=== PATIENT | female | born 1935 | race Caucasian/White ===

== ENCOUNTER 2017-03-05 01:24 | Emergency (ER) | payer OTHER ==
[~2017-03-05] VITALS: Ht 157.5 cm; Wt 79.8 kg
[2017-03-05 01:24] VITALS: BP_SYST 155
--- NOTE | 2017-03-05 01:24 | NUR ---
Placed in room 03 . Placed on personal lines agent, blood pressure machine and pulse oximeter. To gown for exam. Side rails up. Report given to DENNY Parker.
--- NOTE | 2017-03-05 01:26 | NUR ---
Pt AOx4, presents to ER with complaint of abdominal pain after having alcoholic beverage [employer] with coaiden. Pt states usually has "a drink prior to going to bed and this has not happend before". Pt in no acute respiratory distress at this time. Will continue to monitor.
--- NOTE | 2017-03-05 01:30 | NUR ---
ER at bedside examining patient.
[2017-03-05] MEDS ORDERED: NACL 0.9% 1,000 ML IV ONE (01:39)
[2017-03-05] MEDS ORDERED: MAG-AL HYDROX/SIMETH 30 ML UDC PO ONE (01:45)
[2017-03-05] MEDS ORDERED: BELLADONNA ALKALOIDS/PHENOBARB 5 ML UDC PO ONE (01:45)
[2017-03-05] MEDS ORDERED: LIDOCAINE VISCOUS 2%, 15 ML UDC MM ONE (01:45)
[2017-03-05 01:58] LABS: BASOPHILS % (AUTO) 0.3 % (0.0-2.0); EOSINOPHILS # (AUTO) 0.2 K/uL (0.0-0.4); EOSINOPHILS % (AUTO) 1.7 % (0.0-4.0); HEMATOCRIT 35.3 % (36-48); HEMOGLOBIN 11.8 g/dL (12.0-16.0); LYMPHOCYTES # (AUTO) 3.2 K/uL (1.0-5.5); LYMPHOCYTES % (AUTO) 28.5 % (20.5-51.5); MEAN CORPUSCULAR HEMOGLOBIN 29 pg (27-31); MEAN CORPUSCULAR HGB CONC 34 % (32-36); MEAN CORPUSCULAR VOLUME 88 fL (79.0-98.0); MONOCYTES # (AUTO) 0.6 K/uL (0.0-1.0); MONOCYTES % (AUTO) 5.6 % (1.7-9.3); NEUTROPHILS # (AUTO) 7.3 K/uL (1.8-7.7); NEUTROPHILS % (AUTO) 63.9 % (40.0-70.0); PLATELET COUNT (AUTO) 221 K/uL (130-430); RED BLOOD CELL COUNT(AUTO) 4.04 MIL/uL (4.2-6.2); RED CELL DISTRIBUTION WIDTH 13.7 % (9.0-15.0); WHITE BLOOD COUNT (AUTO) 11.3 K/uL (4.8-10.8)
[2017-03-05 02:12] LABS: ANION GAP 9 (5-15); CALCIUM 10.1 mg/dL (8.4-11.0); CHLORIDE 105 mmol/L (98-107); CREATININE 0.79 mg/dL (0.55-1.30); GLUCOSE 96 mg/dL (70-99); POTASSIUM 4.2 mmol/L (3.5-5.1); SODIUM SERUM 141 mmol/L (136-145); UREA NITROGEN, BLOOD 13 mg/dL (8-21)
[2017-03-05 02:17] LABS: INR 0.9 (0.8-1.2); PROTHROMBIN TIME 10.3 SECS (9.5-12.5)
[2017-03-05 02:20] LABS: ALANINE AMINOTRANSFERASE 36 U/L (12-78); ALBUMIN 3.8 g/dL (3.4-4.8); ASPARTATE AMINOTRANSFERASE 49 U/L (10-37); TOTAL BILIRUBIN 0.3 mg/dL (0.0-1.0); TOTAL PROTEIN, SERUM 7.1 g/dL (6.4-8.3)
--- NOTE | 2017-03-05 02:30 | NUR ---
Patient resting quietly. No acute distress noted. Vital signs within normal range.
[2017-03-05] MEDS ORDERED: KETOROLAC TROMETHAMINE 30 MG VIAL IVP ONE (03:00)
[2017-03-05] MEDS ORDERED: PANTOPRAZOLE SODIUM 40 MG TAB PO ONE (03:00)
--- NOTE | 2017-03-05 03:22 | NUR ---
Patient reports pain 0/10 20 minutes after administration of Toradol. No adverse reactions noted. Will continue to monitor.
--- NOTE | 2017-03-05 04:00 | NUR ---
Patient resting quietly. No acute distress noted. Vital signs within normal range.
[2017-03-05 05:00] VITALS: BP_SYST 124
--- NOTE | 2017-03-05 05:00 | NUR ---
Patient given written and verbal discharge instructions and verbalizes understanding. ER MD discussed with patient the results and treatment provided. Patient in stable condition. ID arm band removed. IV catheter removed intact and dressing applied, no active bleeding. Rx of Protonix, Senokot, and Maalox given. Patient educated on pain management and to follow up with PMD. Pain Scale 0/10. Opportunity for questions provided and answered.
== END 2017-03-05 05:00 | disposition home or self-care (01) ==
LOC: SED 01:24
DX: K29.00 Acute gastritis without bleeding (principal); K59.00 Constipation, unspecified; I10 Essential (primary) hypertension; Z90.49 Acquired absence of other specified parts of digestive tract
CPT/HCPCS: 36415; 71010; 74020; 80053; 84484; 85025; 85610; 85730; 93005; 96361; 96374; 99285; J1885; J2001; J7030

== ENCOUNTER 2021-09-04 21:42 | Emergency (ER) | payer OTHER ==
[~2021-09-04] VITALS: Ht 152.4 cm; Wt 54.4 kg
[2021-09-04 22:00] VITALS: BP_SYST 209
== END 2021-09-04 23:30 | disposition left against medical advice (07) ==
LOC: SED 21:42
DX: I10 Essential (primary) hypertension (principal); Z53.21 Procedure and treatment not carried out due to patient leaving prior to being seen by health care provider

== ENCOUNTER 2022-06-17 14:36 | Emergency (ER) | payer OTHER ==
[~2022-06-17] VITALS: Ht 154.9 cm; Wt 68.0 kg
[2022-06-17 14:42] VITALS: BP_SYST 116
--- NOTE | 2022-06-17 14:42 | NUR ---
Patient triaged . VSS and patient appears in no acute distress at this time. Accompanied by EMT'S , awaiting available bed, and MD notified of need for MSE.
--- NOTE | 2022-06-17 14:45 | NUR ---
Daughter: Nkechi Dallas
--- NOTE | 2022-06-17 14:46 | NUR ---
2nd. contact: Mayuri Everett,
--- NOTE | 2022-06-17 15:00 | NUR ---
LAB FOR BLOOD DRAW
--- NOTE | 2022-06-17 15:24 | NUR ---
Placed in room 3 . Placed on school bus monitor, blood pressure machine and pulse oximeter. To gown for exam. Side rails up.
[2022-06-17 15:28] LABS: ANION GAP 4 (5-15); CALCIUM 9.7 mg/dL (8.4-11.0); CHLORIDE 106 mmol/L (98-107); CREATININE 1.32 mg/dL (0.55-1.30); GLUCOSE 96 mg/dL (70-99); POTASSIUM 4.7 mmol/L (3.5-5.1); UREA NITROGEN, BLOOD 30 mg/dL (8-21)
[2022-06-17 15:33] LABS: ALANINE AMINOTRANSFERASE 18 U/L (12-78); ALBUMIN 3.4 g/dL (3.4-4.8); ASPARTATE AMINOTRANSFERASE 24 U/L (10-37); TOTAL BILIRUBIN 0.4 mg/dL (0.0-1.0)
--- NOTE | 2022-06-17 15:39 | NUR ---
SW DAUGHTER MARIELLA FOR STATUS UPDATE
[2022-06-17 16:04] LABS: BASOPHILS % (AUTO) 0.4 % (0.0-2.0); EOSINOPHILS # (AUTO) 0.1 K/uL (0.0-0.4); HEMATOCRIT 34.1 % (36-48); LYMPHOCYTES # (AUTO) 2.2 K/uL (1.0-5.5); MEAN CORPUSCULAR VOLUME 88 fL (79.0-98.0); MONOCYTES # (AUTO) 0.3 K/uL (0.0-1.0); MONOCYTES % (AUTO) 4.5 % (1.7-9.3); NEUTROPHILS # (AUTO) 5.1 K/uL (1.8-7.7); NEUTROPHILS % (AUTO) 66.1 % (40.0-70.0); PLATELET COUNT (AUTO) 260 K/uL (130-430); RED BLOOD CELL COUNT(AUTO) 3.89 MIL/uL (4.2-6.2); RED CELL DISTRIBUTION WIDTH 13.9 % (9.0-15.0); WHITE BLOOD COUNT (AUTO) 7.8 K/uL (4.8-10.8)
[2022-06-17] MEDS ORDERED: NACL 0.9% 1,000 ML IV ONE (17:00)
--- NOTE | 2022-06-17 17:37 | NUR ---
PT VOIDED IN BED ESCALANTE PER REQUEST AND HAD SMALL SOFT BM, PT CLEANED
[2022-06-17 18:40] VITALS: BP_SYST 122
== END 2022-06-17 18:42 | disposition home or self-care (01) ==
LOC: SED 14:36
DX: R55 Syncope and collapse (principal); E86.0 Dehydration; I10 Essential (primary) hypertension
CPT/HCPCS: 99285; 96360; 70450; 71045; 80053; 82550; 85025; 84484; 36415; 93005; 76376; 83605; J7030